=== PATIENT | male | born 1960 | race Caucasian/White ===

== ENCOUNTER 2016-11-04 08:03 | Day surgery (SDC) | payer BC, OTHER ==
[2016-11-03 14:04] VITALS: BMI 37.5
[2016-11-04] MEDS ORDERED: PROPOFOL 20 ML ONE ×4 (09:02)
[2016-11-04] MEDS ORDERED: LIDOCAINE HCL/PF 1% SDV 5ML VIAL ONE (09:02)
[2016-11-04 10:30] VITALS: TEMP 98.4
[2016-11-04 11:25] VITALS: BP 128/83; PULSE 67
[2016-11-04 12:29] LABS: MCH 29.5 pg (25.7-33.7); MCHC 33.9 g/dl (32.0-35.9); MEAN CELL VOLUME 87.1 fl (80-96); MEAN PLT VOLUME 9.9 fl (7.5-11.1); PLATELET COUNT 210 K/MM3 (134-434); RDW 12.9 % (11.9-15.9)
[2016-11-04 13:02] LABS: ALBUMIN 4.3 g/dl (3.4-5.0); ANION GAP 9 (8-16); BILIRUBIN,TOTAL 0.5 mg/dL (0.2-1.0); CALCIUM 8.8 mg/dL (8.5-10.1); CO2 26 mmol/L (21-32); GLUCOSE,RANDOM 103 mg/dL (74-106); SGOT/AST 28 U/L (15-37); SGPT/ALT 33 U/L (12-78); TOT PROT 7.3 g/dl (6.4-8.2)
[2016-11-04 13:05] LABS: ALK PHOS 53 U/L (45-117); FERRITIN 304.384 ng/ml (16.4-293.9)
[2016-11-05 10:12] LABS: SERUM IRON 66 ug/dL (38-169); TOTAL IRON BINDING CAPACITY 343 ug/dL (250-450); UIBC 277 ug/dL (111-343)
--- NOTE | 2016-11-07 12:28 | PATH ---
Surgical Pathology Report Patient Name: KIMBERLY CLARK [facility]. Rec. #: [id number] /Age/Gender: 1960 (Age: 55) / M Account: [id number] Location: [facility]-ENDOSCOPY Taken: 11/04/2016 Received: 11/04/2016 Reported: 11/07/2016 Physicians: Raghu Lovelace M.D. Specimen(s) Received A: BX 2ND PORTION DUODENUM & BULB B: BX ANTRUM ULCER AND ANTRUM C: BX GE JUNCTION D: BX MID ESOPHAGUS E: BX POLYP DISTAL TRANSVERSE COLON Clinical History Heartburn, rule out Lopez's, adenoma surveillance Erosive gastritis, gastric ulcer, colon polyp, diverticulosis Final Diagnosis A. DUODENUM, SECOND PORTION AND BULB, BIOPSY: DUODENAL MUCOSA WITH MILD CHRONIC INFLAMMATION. NO HISTOLOGIC EVIDENCE OF GLUTEN SENSITIVE ENTEROPATHY (CELIAC DISEASE). B. STOMACH, ANTRUM AND ANTRAL ULCER, BIOPSY: GASTRIC ANTRAL MUCOSA WITH MODERATE CHRONIC GASTRITIS AND MARKED REACTIVE GASTROPATHY WITH FOCAL SURFACE ULCERATION WITH ASSOCIATED ACTIVE INFLAMMATION AND GRANULATION TISSUE. IMMUNOSTAINS H. PYLORI IS NEGATIVE FOR ORGANISMS. C. GE JUNCTION, BIOPSY: SQUAMOUS EPITHELIUM WITH CHRONIC INFLAMMATION AND REFLUX TYPE CHANGES. NO COLUMNAR EPITHELIUM PRESENT (NO INTESTINAL METAPLASIA/LOPEZ'S ESOPHAGUS IDENTIFIED). NO EVIDENCE OF EOSINOPHILIC ESOPHAGITIS IN THE EXAMINED MATERIAL. D. ESOPHAGUS, MID, BIOPSY: COLUMNAR CARDIA-TYPE MUCOSA WITH CHRONIC INFLAMMATION. NO INTESTINAL METAPLASIA (LOPEZ'S ESOPHAGUS) IDENTIFIED. NO SQUAMOUS EPITHELIUM PRESENT. E. COLON, DISTAL TRANSVERSE, POLYP: POLYPOID FRAGMENT OF COLONIC MUCOSA WITH FOCAL HYPERPLASTIC CHANGE. Electronically Signed Blaise Liz M.D. Gross Description A. Received in formalin, labeled "biopsy second portion of duodenum and duodenal bulb" are 4 coelho, irregular portions of soft tissue ranging from 0.1-0.4 cm in greatest dimension. The specimens are submitted in toto in one cassette. B. Received in formalin, labeled "biopsy antrum ulcer and antrum" are 5 coelho, irregular portions of soft tissue ranging from 0.3-0.4 cm in greatest dimension. The specimens are submitted in toto in one cassette. C. Received in formalin, labeled "biopsy GE junction" are 2 coelho, irregular portions of soft tissue measuring 0.2 and 0.3 cm in greatest dimension. The specimens are submitted in toto in one cassette. D. Received in formalin, labeled "biopsy midesophagus" is a coelho, irregular portion of soft tissue measuring 0.3 cm in greatest dimension. The specimen is submitted in toto in one cassette. E. Received in formalin, labeled "biopsy distal transverse polyp" are 4 coelho, irregular portions of soft tissue ranging from 0.1-0.3 cm in greatest dimension. The specimens are submitted in toto in one cassette. 11/04/201611/04/2016
== END 2016-11-04 12:03 | disposition home or self-care (01) ==
LOC: JASU-ENDO 08:03
PROVIDERS: ATTEND Internal Medicine Gastroenterology
PROC: 0DB98ZX Excision of Duodenum, Via Natural or Artificial Opening Endoscopic, Diagnostic (ICD-10-PCS; 2016-11-04)
PROC: 0DB68ZX Excision of Stomach, Via Natural or Artificial Opening Endoscopic, Diagnostic (ICD-10-PCS; 2016-11-04)
PROC: 0DB28ZX Excision of Middle Esophagus, Via Natural or Artificial Opening Endoscopic, Diagnostic (ICD-10-PCS; 2016-11-04)
PROC: 0DB38ZX Excision of Lower Esophagus, Via Natural or Artificial Opening Endoscopic, Diagnostic (ICD-10-PCS; 2016-11-04)
PROC: 0DBL8ZX Excision of Transverse Colon, Via Natural or Artificial Opening Endoscopic, Diagnostic (ICD-10-PCS; principal; 2016-11-04 09:00)
DX: Z86.010 Personal history of colon polyps (principal); D12.3 Benign neoplasm of transverse colon; K57.30 Diverticulosis of large intestine without perforation or abscess without bleeding; K64.8 Other hemorrhoids; K21.9 Gastro-esophageal reflux disease without esophagitis; K25.9 Gastric ulcer, unspecified as acute or chronic, without hemorrhage or perforation; K29.70 Gastritis, unspecified, without bleeding; K29.80 Duodenitis without bleeding
CPT/HCPCS: 36415; 80053; 82378; 82728; 82941; 83540; 83550; 85027; 86140; 88305-TC; 88342-TC

== ENCOUNTER 2017-03-10 08:34 | Day surgery (SDC) | payer BC, OTHER ==
[2017-03-10 08:43] VITALS: BMI 36.8
[2017-03-10] MEDS ORDERED: PROPOFOL 20 ML ONE ×3 (09:22)
[2017-03-10] MEDS ORDERED: MIDAZOLAM HCL 5 MG/1 ML Single Dose Vial ONE (09:34)
[2017-03-10] MEDS ORDERED: TETRACAINE/BENZOCAINE/BUTAMBEN 20 GM SPR TP ONE (09:39)
[2017-03-10 10:23] VITALS: TEMP 97.5
[2017-03-10 11:42] VITALS: BP 120/76; PULSE 75
--- NOTE | 2017-03-14 12:35 | PATH ---
Surgical Pathology Report Patient Name: KIMBERLY CLARK [facility]. Rec. #: [id number] /Age/Gender: 1960 (Age: 56) / M Account: [id number] Location: [facility]-ENDOSCOPY Taken: 03/10/2017 Received: 03/10/2017 Reported: 03/14/2017 Physicians: Raghu Lovelace M.D. Specimen(s) Received A: BX ANTRUM B: BX DISTAL ESOPHAGUS Clinical History History of gastric ulcers Gastritis, hiatal hernia Final Diagnosis A. STOMACH, ANTRUM, BIOPSY: GASTRIC ANTRAL MUCOSA WITH MODERATE CHRONIC GASTRITIS AND MILD REACTIVE GASTROPATHY. IMMUNOSTAIN FOR H. PYLORI IS NEGATIVE FOR ORGANISMS. B. ESOPHAGUS, DISTAL, BIOPSY: SQUAMOUS EPITHELIUM WITH CHRONIC INFLAMMATION AND REFLUX TYPE CHANGES. NO COLUMNAR EPITHELIUM PRESENT (NO INTESTINAL METAPLASIA/LOPEZ'S ESOPHAGUS IDENTIFIED). Electronically Signed Blaise Liz M.D. Gross Description A. Received in formalin, labeled "biopsy antrum" are 3 coelho, irregular portions of soft tissue ranging from 0.2-0.3 cm in greatest dimension. The specimens are submitted in toto in one cassette. B. Received in formalin, labeled "biopsy distal esophagus" are 2 coelho, irregular portions of soft tissue measuring 0.4 and 0.6 cm in greatest dimension. The specimens are submitted in toto in one cassette. 03/10/201703/10/2017
== END 2017-03-10 11:45 | disposition home or self-care (01) ==
LOC: JASU-ENDO 08:34
PROVIDERS: ATTEND Internal Medicine Gastroenterology
PROC: 0DB68ZX Excision of Stomach, Via Natural or Artificial Opening Endoscopic, Diagnostic (ICD-10-PCS; 2017-03-10)
PROC: 0DB58ZX Excision of Esophagus, Via Natural or Artificial Opening Endoscopic, Diagnostic (ICD-10-PCS; principal; 2017-03-10 09:30)
DX: K21.9 Gastro-esophageal reflux disease without esophagitis (principal); K44.9 Diaphragmatic hernia without obstruction or gangrene; K29.70 Gastritis, unspecified, without bleeding
CPT/HCPCS: 88305-TC; 88342-TC

== ENCOUNTER 2018-03-14 10:22 | Emergency (ER) | payer OTHER, BC ==
[2018-03-14 10:42] VITALS: BP 136/94; PULSE 67; TEMP 98.7; BMI 37.2
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
== END 2018-03-14 11:17 | disposition home or self-care (01) ==
LOC: FER 10:22
DX: S43.402A Unspecified sprain of left shoulder joint, initial encounter (principal); I10 Essential (primary) hypertension; E78.5 Hyperlipidemia, unspecified; E03.9 Hypothyroidism, unspecified; K21.9 Gastro-esophageal reflux disease without esophagitis; X58.XXXA Exposure to other specified factors, initial encounter; Y93.89 Activity, other specified; Y92.9 Unspecified place or not applicable
CPT/HCPCS: 99282-25

== ENCOUNTER 2020-09-25 05:40 | Day surgery (SDC) | payer BC, OTHER ==
[2020-09-24 09:15] VITALS: BMI 39.6
[2020-09-25] MEDS ORDERED: MIDAZOLAM HCL 2 MG/2 ML SINGLE DOSE VIAL ONE ×2 (08:15)
[2020-09-25 08:47] VITALS: TEMP 98
[2020-09-25 09:16] VITALS: BP 115/76; PULSE 70
== END 2020-09-25 09:30 | disposition home or self-care (01) ==
LOC: JASU-ENDO 05:40
PROVIDERS: ATTEND Internal Medicine Gastroenterology
PROC: 0DB68ZX Excision of Stomach, Via Natural or Artificial Opening Endoscopic, Diagnostic (ICD-10-PCS; 2020-09-25)
PROC: 0DB28ZX Excision of Middle Esophagus, Via Natural or Artificial Opening Endoscopic, Diagnostic (ICD-10-PCS; 2020-09-25)
PROC: 0DB38ZX Excision of Lower Esophagus, Via Natural or Artificial Opening Endoscopic, Diagnostic (ICD-10-PCS; principal; 2020-09-25 09:00)
DX: K21.00 Gastro-esophageal reflux disease with esophagitis, without bleeding (principal); K44.9 Diaphragmatic hernia without obstruction or gangrene; K29.50 Unspecified chronic gastritis without bleeding
CPT/HCPCS: 88305-TC; 88342-TC

== ENCOUNTER 2022-10-07 04:31 | Day surgery (SDC) | payer BC, OTHER ==
[2022-10-06 13:37] VITALS: BMI 35.6
[2022-10-07 08:56] VITALS: TEMP 97.7
[2022-10-07 09:58] VITALS: BP 116/59; PULSE 76; RESP 18
== END 2022-10-07 09:36 | disposition home or self-care (01) ==
LOC: JASU-ENDO 04:31
PROVIDERS: ATTEND Internal Medicine Gastroenterology
PROC: 0DBL8ZX Excision of Transverse Colon, Via Natural or Artificial Opening Endoscopic, Diagnostic (ICD-10-PCS; principal; 2022-10-07 08:00)
DX: Z12.11 Encounter for screening for malignant neoplasm of colon (principal); Z86.010 Personal history of colon polyps; D12.3 Benign neoplasm of transverse colon; K57.30 Diverticulosis of large intestine without perforation or abscess without bleeding
CPT/HCPCS: 88305-TC